=== PATIENT | female | born 1965 | race Caucasian/White ===

== ENCOUNTER 2020-02-16 10:20 | Day surgery (SDC) | payer OTHER, SELFPAY ==
[2020-02-12 11:43] VITALS: BMI 27.5
--- NOTE | 2020-02-15 08:59 | HO.ANESPROP2 ---
Documented by User: Jane Borden 02/15/20 09:01 HPI - Anesthesia Eval Consult details Narrative: 54yo F for Colonoscopy PMFSH Past Medical History Medical History Breast cancer History of anesthesia problem Surgical History Surgical History History of lumpectomy of right breast Hx of colonoscopy S/P oophorectomy Social History Social History Smoking Status: Never smoker Use of substances other than those prescribed or required for medical reasons: No Have you been hit, kicked, punched, or otherwise hurt by someone within the past year? If so, by whom?: No Advance Directives: No Advance Directives Information Provided: No Advance Directives on File: No Recently lost weight without trying: No Meds Allergies Allergy/AdvReac Type Severity Reaction Status Date / Time No Known Allergies Allergy Verified 02/12/20 11:42 Home Medications Medication Instructions Recorded Confirmed Type No Known Home Meds 02/12/20 02/12/20 History Exam Exam Date and Time: February 15, 2020 0859 Height,Weight and Vital Signs: Height 5 ft 8 in Weight 82.1 kg Assessment and Plan Assessment Anesthesia Assessment: Chart Reviewed Documented by User: Maty Spivey 02/16/20 10:48 [facility] Past Medical History Medical History Breast cancer History of anesthesia problem Surgical History Surgical History History of lumpectomy of right breast Hx of colonoscopy S/P oophorectomy Social History Social History Smoking Status: Never smoker Use of substances other than those prescribed or required for medical reasons: No Have you been hit, kicked, punched, or otherwise hurt by someone within the past year? If so, by whom?: No Advance Directives: No Advance Directives Information Provided: No Advance Directives on File: No Recently lost weight without trying: No Meds Allergies Allergy/AdvReac Type Severity Reaction Status Date / Time No Known Allergies Allergy Verified 02/12/20 11:42 Home Medications Medication Instructions Recorded Confirmed Type No Known Home Meds 02/12/20 02/12/20 History Assessment and Plan Assessment Anesthesia Assessment: Anesthesia Plan Discussed and Chart Reviewed Final Anesthetic Review NPO: Yes ASA Class: II Final Preanesthetic Review: No Changes in Pt Med Stat, Meds/Allgs Chart Reviewed, Consent Obtained/Reviewed and Anes Risks/Benef Reviewed Patient Risk: Low Procedure Risk: Low Anesthetic Plan Anesthetic Plan: MAC: Disposition: Standard PACU
--- NOTE | 2020-02-16 10:48 | HO.ANESPROP2 ---
[facility] Past Medical History Medical History Breast cancer History of anesthesia problem Surgical History Surgical History History of lumpectomy of right breast Hx of colonoscopy S/P oophorectomy Social History Social History Smoking Status: Never smoker Use of substances other than those prescribed or required for medical reasons: No Have you been hit, kicked, punched, or otherwise hurt by someone within the past year? If so, by whom?: No Advance Directives: No Advance Directives Information Provided: No Advance Directives on File: No Recently lost weight without trying: No Meds Allergies Allergy/AdvReac Type Severity Reaction Status Date / Time No Known Allergies Allergy Verified 02/12/20 11:42 Home Medications Medication Instructions Recorded Confirmed Type No Known Home Meds 02/12/20 02/12/20 History Exam Exam Date and Time: February 16, 2020 1048 Height,Weight and Vital Signs: Height 5 ft 8 in Weight 82.1 kg Airway Mallampati Class: II TM Dist: >3cm Neck ROM: Full Loose/Missing/Broken Teeth: No Heart: RRR Lungs: CTA
[2020-02-16 10:56] VITALS: BP 119/68; PULSE 64; RESP 18; TEMP 36.4; O2SAT 98
[2020-02-16] MEDS: Lactated Ringers 1,000 ML 100 ML IVCONT (11:00)
--- NOTE | 2020-02-16 11:25 | P.HPSUR_ITS ---
Pre-Procedural Eval Section A The patient is an INPATIENT: No The History & Physical has been completed within 30 days and I have reviewed it.: No Section B Chief Complaint: SCREENING Details of Present Illness: She had a colonoscopy about 6 or more years ago- her father (67 yrs) had colon cancer and at age 68 yrs . Breast Cancer-2009- doing well She has a normal bowel pattern, BM daily Appetite is good. No GI complaints. No nausea, vomiting, abdominal pain, reflux, change in bowels, rectal bleeding, fever or chills. Relevant Family History (Specify if Yes): Yes Relevant Social History: None Present Medications: see Short Stay Collaborative assessment Medical History: Significant History (BRCA positive. R Breat Cancer 2010,Lumpectomy,RTX and chemo, took tamoxifen for a few years. Mammogram [facility] 2018. s/p oopherectomy [address] Barnard. Colonoscopy 2013? [facility] ) History of Previous Operations: Relevant previous surgery/procedure and date(s) ( s/p oopherectomy [address] Barnard. Colonoscopy 2013? [facility]. ) Allergies: Allergies Allergy/AdvReac Type Severity Reaction Status Date / Time No Known Allergies Allergy Verified 02/12/20 11:42 Review of Systems Sugical H&P ROS: Negative: Constitution, Cardiovascular, Respiratory, Gastrointestinal and Musculoskeletal Exam Surgical H&P Exam: Normal: HEENT, Normal: Heart, Normal: Lungs, Normal: Extremit ies and Normal: Abdomen Plan Diagnosis/Plan: Unchanged Patient has been examined and remains a candidate for the planned procedure
--- NOTE | 2020-02-16 12:12 | W.PM.OPN ---
Operative Note Operative Note Narrative: Date of procedure: 02/16/20 Pre-op diagnosis: Colon cancer screening Post-op diagnosis: other (Colon polyp, hemorrhoids) Procedure: COLONOSCOPY TILL CECUM WITH BIOPSIES Consent: Indications for the procedure and potential complications of bleeding, perforation, reaction to medications and missed diagnosis were discussed with the patient and informed consent was obtained. Instrument: Olympus PCF H 190 L variable stiffness pediatric colonoscope Monitoring: Vital signs and clinical assessment, intermittent blood pressure monitoring, continuous EKG monitoring, Pulse oximetry and Carbon Dioxide monitoring were done throughout the procedure. Colon withdrawl time was 12 minutes. Procedure: The patient was placed in the left lateral decubitis position and pre-procedure medications were administered. After a digital rectal examination of the ano-rectum, the video colonoscope was inserted into the rectum and advanced through the colon to the cecum. The colonoscope was slowly withdrawn in a retrograde panoramic fashion and the colon mucosa was carefully examined including a retroflexed view of the rectum. Findings and interventions are described below. Procedure Difficulty: Without difficulty Findings: Terminal Ileum: Not evaluated Cecum: Normal Ascending Colon: Normal Transverse Colon: Normal Descending Colon: Normal Sigmoid Colon: A 4-5 mm diminutive polyp removed with a cold biopsy. Rectum: Normal Ano-rectum: Moderate internal hemorrhoids Colon preparation: Excellent Impression and Post Procedure Diagnosis: Colonoscopy Findings: One diminutive polyp removed Moderate hemorrhoids on retroflexed exam. Plan: Await pathology results Patient has an appointment on 02/28/20 in the [facility] with PA. Gagan. Repeat Colonoscopy interval based on path results - in 5 years if polyps are adenomatous and 10 years if polyps are hyperplastic. Above findings were reviewed with the patient and colon polyps handout was given in the discharge area Surgeon: Joseph Goldsmith MD Anesthesia: MAC (Dr Lloyd) Kitchen Steward/Stewardess: Romina Major Estimated blood loss (mL): 0 Pathology: other (A SC polyp x 1) Condition: stable Disposition: PACU
[2020-02-16 12:16] VITALS: BP 99/41; PULSE 60; RESP 16; TEMP 37.2; O2SAT 100
[2020-02-16 12:31] VITALS: BP 98/48; PULSE 58; RESP 18; O2SAT 99
[2020-02-16 12:46] VITALS: BP 121/63; PULSE 56; RESP 18; O2SAT 100
--- NOTE | 2020-02-16 13:09 | HO.POSTANES ---
Post Anesthesia Evaluation Post Anesthesia Evaluation Vital Signs: Vital Signs Temp Pulse Resp BP Pulse Ox 02/16/20 12:46 98.9 F 56 18 121/63 100 02/16/20 12:31 58 18 98/48 L 99 02/16/20 12:16 98.9 F 60 16 99/41 L 100 02/16/20 10:56 97.5 F 64 18 119/68 98 Anesthesia: Monitored (tiva) Mental Status: Awake Pain Control: Satisfactory Nausea/Vomiting: None Hydration: Adequate Anesthesia-Related Issues: No Anes. Related Issues
== END 2020-02-16 13:30 | disposition home or self-care (01) ==
PROVIDERS: PCP Internal Medicine; Visit Provider Internal Medicine Gastroenterology
PROC: 0DJD8ZZ Inspection of Lower Intestinal Tract, Via Natural or Artificial Opening Endoscopic (ICD-10-PCS; CPT 45378; principal; 2020-02-16 11:30)
DX: Z12.11 Encounter for screening for malignant neoplasm of colon (principal); Z80.0 Family history of malignant neoplasm of digestive organs; K63.5 Polyp of colon; K64.8 Other hemorrhoids; Z85.3 Personal history of malignant neoplasm of breast; Z15.01 Genetic susceptibility to malignant neoplasm of breast; Z92.3 Personal history of irradiation; Z92.21 Personal history of antineoplastic chemotherapy; Z90.721 Acquired absence of ovaries, unilateral
CPT/HCPCS: 45380; 88305